=== PATIENT | male | born 1960 | race Caucasian/White ===

== ENCOUNTER 2021-03-31 18:26 | Emergency (ER) | payer MEDICAID ==
[~2021-03-31] VITALS: Ht 182.9 cm; Wt 133.6 kg
[2021-03-31 18:46] VITALS: BP 194/102
[2021-03-31] MEDS ORDERED: MELO-102 PO (19:40)
[2021-03-31] MEDS ORDERED: PSEU120T55 PO (19:40)
== END 2021-03-31 19:57 | disposition home or self-care (01) ==
LOC: ER 18:27
DX: M54.2 Cervicalgia (principal); R09.81 Nasal congestion; Z79.899 Other long term (current) drug therapy
CPT/HCPCS: 99283

== ENCOUNTER 2021-05-17 12:54 | Emergency (ER) | payer MEDICAID ==
[~2021-05-17] VITALS: Ht 182.9 cm; Wt 132.3 kg
[~2021-05-17 12:54] MED LIST: MELO-102 PO; PSEU120T55 PO
[2021-05-17 13:05] VITALS: BP 208/113
== END 2021-05-17 20:44 | disposition left against medical advice (07) ==
LOC: ER 12:55
DX: R00.2 Palpitations (principal); R06.6 Hiccough; Z53.21 Procedure and treatment not carried out due to patient leaving prior to being seen by health care provider
CPT/HCPCS: 93005

== ENCOUNTER 2021-07-31 08:42 | Day surgery (SDC) | payer MEDICAID ==
[2021-07-26 12:10] LABS: BASOPHILS # (AUTO) 0.1 X10'3 (0-0.2); BASOPHILS % (AUTO) 1.4 % (0-1); EOSINOPHILS # (AUTO) 0.3 X10'3 (0-0.9); EOSINOPHILS % (AUTO) 3.9 % (0-6); HEMOGLOBIN 14.9 g/dl (14.0-17.9); LYMPHOCYTES # (AUTO) 1.7 X10'3 (1.1-4.8); MEAN CORPUSCULAR HEMOGLOBIN 30.6 PG (27.0-31.0); MEAN CORPUSCULAR HGB CONC 35.5 g/dL (33.0-36.5); MEAN CORPUSCULAR VOLUME 86.1 FL (78-98); MEAN PLATELET VOLUME 9.4 FL (7.4-10.4); MONOCYTES # (AUTO) 0.7 X10'3 (0-0.9); MONOCYTES % (AUTO) 8.4 % (2-12); NEUTROPHILS % (AUTO) 67.3 % (42-75); PLATELET COUNT 229 X10'3 (140-440); RED BLOOD COUNT 4.88 X10'6 (4.70-6.10); RED CELL DISTRIBUTION WIDTH 13.4 % (11.5-14.5); WHITE BLOOD COUNT 8.9 X10'3 (4.5-11.0)
[2021-07-26 12:30] LABS: PARTIAL THROMBOPLASTIN TIME 29 SECONDS (22-32)
[2021-07-26 12:33] LABS: ALANINE AMINOTRANSFERASE 24 U/L (12-78); ALBUMIN 3.2 G/DL (3.4-5.0); ALBUMIN/GLOBULIN RATIO 0.8 (1.1-1.5); ALKALINE PHOSPHATASE 67 IU/L (46-116); ANION GAP 7 (8-16); ASPARTATE AMINO TRANSFERASE 18 U/L (10-37); BILIRUBIN,TOTAL 0.5 MG/DL (0.1-1.0); BLOOD UREA NITROGEN 25 MG/DL (7-18); CHLORIDE 102 MMOL/L (99-107); CREATININE 1.39 MG/DL (0.60-1.10); GLUCOSE 223 MG/DL (70-104); POTASSIUM 3.6 MMOL/L (3.5-5.1); SODIUM 139 MMOL/L (135-145); TOTAL CARBON DIOXIDE 29.8 MMOL/L (24-32); TOTAL PROTEIN 7.2 G/DL (6.4-8.2); eGFR 52 ML/MIN
[~2021-07-31] VITALS: Ht 182.9 cm; Wt 133.5 kg
[2021-07-31] VITALS (12 sets, daily range): BP systolic 140–189; BP diastolic 71–99
[2021-07-31] MEDS ORDERED: HYDR25TA5 PO (09:03)
[2021-07-31] MEDS ORDERED: ATEN50TA8 PO (09:03)
[2021-07-31] MEDS ORDERED: LISI40TA13 PO (09:03)
[2021-07-31] MEDS ORDERED: METF-1203 PO (09:03)
[2021-07-31] MEDS ORDERED: HYDR-4070 PO (09:03)
[2021-07-31] MEDS ORDERED: CARV6.253 PO (09:03)
[2021-07-31] MEDS ORDERED: AMOX1TAB15 PO (09:03)
[2021-07-31] MEDS ORDERED: insulin Lispro (HumaLOG) vial - multi-dose SQ SCH (09:05)
[2021-07-31] MEDS ORDERED: glucagon, human recombinant 1mg kit SUBCUT PRN (09:05)
[2021-07-31] MEDS ORDERED: diphenhydrAMINE 25mg capsule PO PRN (09:05)
[2021-07-31] MEDS ORDERED: LORazepam 0.5 MG tablet PO PRN (09:05)
[2021-07-31] MEDS ORDERED: DAPA10TA PO (09:05)
[2021-07-31] MEDS ORDERED: MELO-102 PO (09:05)
[2021-07-31] MEDS ORDERED: dextrose 50%-water 50ml dispensing syringe IV PRN ×2 (09:05)
[2021-07-31] MEDS ORDERED: MESSAGE TO PHARMACY PO ONE (09:05)
[2021-07-31] MEDS ORDERED: nitroGLYCERIN 0.4mg SUBLingual tab SL PRN (09:05)
[2021-07-31] MEDS ORDERED: normal saline 1,000 ML IV SCH (09:05)
[2021-07-31] MEDS ORDERED: dextrose ORAL solution 15 GM/59 ML bottle PO PRN ×2 (09:05)
[2021-07-31 10:20] LABS: HEMOGLOBIN A1C 8.7 % (4.5-6.2)
[2021-07-31] MEDS ORDERED: LIDOcaine 1% (10mg/ml)w/preservative injection 20ml MDV ONE (10:32)
[2021-07-31] MEDS ORDERED: midazolam 1 mg/ML 2ml injection ONE (10:32)
[2021-07-31] MEDS ORDERED: fentaNYL/PF 50MCG/1 ML 2ML syringe ONE (10:32)
[2021-07-31] MEDS ORDERED: iohexol 350 MG/ML 50ML vial IV ONE ×2 (10:33→11:29)
[2021-07-31] MEDS ORDERED: iohexol 350MG/ML 100ml bottle IV ONE (10:33)
[2021-07-31] MEDS ORDERED: hydrALAZINE 20mg/ml inj. IV ONE (11:12)
[2021-07-31] MEDS ORDERED: nitroGLYCERIN-Tridil 50MG/D5W 250 ML IV ONE (11:15)
[2021-07-31] MEDS ORDERED: enalaprilat dihydrate 2.5mg/2ml vial IV ONE (11:17)
[2021-07-31] MEDS ORDERED: hydrALAZINE 25 MG tablet PO ONE (11:55)
[2021-07-31] MEDS ORDERED: lisinopril 20mg tablet PO ONE (11:55)
[2021-07-31] MEDS ORDERED: hydrALAZINE 20mg/ml inj. IV PRN (11:55)
[2021-07-31] MEDS ORDERED: nitroGLYCERIN-Tridil 50MG/D5W 250 ML IV SCH (12:00)
[2021-07-31] MEDS ORDERED: proCHLORperazine 10 MG/2 ml inj IV PRN (12:10)
[2021-07-31] MEDS ORDERED: normal saline 1000ml 1,000 ML IV SCH (12:10)
[2021-07-31] MEDS ORDERED: HYDROcodone/acetaminophen 10/325mg tab PO PRN (12:10)
[2021-07-31] MEDS ORDERED: HYDROcodone/acetaminophen 5mg/325mg tablet PO PRN (12:10)
[2021-07-31] MEDS ORDERED: ondansetron/PF 4mg/2ml inj IV PRN (12:10)
[2021-07-31] MEDS ORDERED: OXAZEpam 15mg capsule PO PRN (12:10)
[2021-07-31] MEDS ORDERED: insulin glargine (Lantus) pen - multi-dose SQ SCH (21:00)
== END 2021-07-31 18:11 | disposition home or self-care (01) ==
LOC: SSTAY O 08:42
PROVIDERS: ATTEND Internal Medicine Cardiovascular Disease
DX: R94.39 Abnormal result of other cardiovascular function study (principal); I25.10 Atherosclerotic heart disease of native coronary artery without angina pectoris; I42.9 Cardiomyopathy, unspecified; F40.240 Claustrophobia; G43.809 Other migraine, not intractable, without status migrainosus; E11.9 Type 2 diabetes mellitus without complications; I10 Essential (primary) hypertension; E78.5 Hyperlipidemia, unspecified; I25.2 Old myocardial infarction; M19.90 Unspecified osteoarthritis, unspecified site; Z79.01 Long term (current) use of anticoagulants; Z79.899 Other long term (current) drug therapy; Z98.890 Other specified postprocedural states; Z87.891 Personal history of nicotine dependence
CPT/HCPCS: 36415; 71046; 80053; 83036; 83880; 84484; 85025; 85610; 85730; 93005; 93458; 99152; 99153; C1760; C1769; J0360; J1644; J1815; J2250; J3010; J3490; J7030; Q0163; Q9967; A4620; A5120; A6258

== ENCOUNTER 2021-08-14 15:26 | Outpatient (CLI) | payer MEDICAID ==
[~2021-08-14 15:26] MED LIST changes: +AMOX1TAB15 PO; +ATEN50TA8 PO; +CARV6.253 PO; +DAPA10TA PO; +HYDR-4070 PO; +HYDR25TA5 PO; +LISI40TA13 PO; +METF-1203 PO; -PSEU120T55 PO
[2021-08-14 15:56] LABS: ABG BASE EXCESS 3.6 mmol/L (-2.0-2.0); ABG HCO3 27.8 mmol/L (22.0-26.0); ABG OXYGEN SATURATION 96.2 % (94-97); ABG PCO2 (T) 40.6 mmHg (35.0-48.0); ABG PO2 (T) 83.3 mmHg (75.0-100.0); ALLEN'S TEST POSITIVE; FCOHb 0.3 % (0.0-3.9); FMetHb 0.1 % (0.0-1.5); FO2Hb 95.8 % (94-97); TOTAL HEMOGLOBIN 15.4 G/dl (14.0-18.0)
== END 2021-08-14 23:59 | disposition home or self-care (01) ==
LOC: RT 15:26
PROVIDERS: ATTEND Internal Medicine Cardiovascular Disease
DX: R06.02 Shortness of breath (principal); R06.2 Wheezing; G47.33 Obstructive sleep apnea (adult) (pediatric)
CPT/HCPCS: 36600; 82803; 85018; 94010; 94727; 94729

== ENCOUNTER 2022-07-14 13:17 | Emergency (ER) | payer MEDICAID ==
[~2022-07-14] VITALS: Ht 182.9 cm; Wt 126.5 kg
[2022-07-14 13:53] VITALS: BP 112/67
[2022-07-14 14:46] LABS: CLARITY,URINE CLEAR (Clear); COLOR,URINE YELLOW (Yellow); GLUCOSE, URINE 100 mg/dl (Neg); KETONES,URINE NEGATIVE (Neg); LEUKOCYTE ESTERASE ,URINE NEGATIVE (Neg); NITRITES, URINE NEGATIVE (Neg); OCCULT BLOOD,URINE NEGATIVE (Neg); PROTEIN,URINE 30 mg/dl (Neg); UA COLLECTION TYPE VOIDED; UROBILINOGEN,URINE 0.2 E.U/dL (0.2-1.0)
[2022-07-14 14:51] LABS: BACTERIA,URINE NONE SEEN /HPF (Neg); MUCUS STRANDS NONE SEEN /LPF (Neg); RBC,URINE NONE SEEN /HPF (0-2); SQUAMOUS EPITHELIAL CELL,UR FEW /LPF (FEW); WBC,URINE 0-4 /HPF (0-4)
[2022-07-14] MEDS ORDERED: FLO0.4C PO (15:04)
== END 2022-07-14 15:24 | disposition home or self-care (01) ==
LOC: ER 13:18
DX: R39.198 Other difficulties with micturition (principal)
CPT/HCPCS: 81001; 99284

== ENCOUNTER 2025-01-22 15:40 | Emergency (ER) | payer MEDICAID ==
[~2025-01-22] VITALS: Ht 182.9 cm; Wt 135.5 kg
[~2025-01-22 15:40] MED LIST changes: -HYDR-4070 PO; +HYDR50TA46 PO
[2025-01-22 15:45] VITALS: BP 208/100; PULSE 60; O2SAT 98
[2025-01-22] MEDS: acetaminophen 325mg tablet PO ONE (18:10)
--- NOTE | 2025-01-22 18:37 | RADIOLOGY REPORT ---
EXAM: CT CT HEAD INDICATION: Blunt injury TECHNIQUE: CT of the head without intravenous contrast. Radiation Dose : 1. Head: CT Dose: CTDI volume is 67 mGy. Dose-length product is 1268 mGy*cm The dose indicators for CT are the volume Computed Tomography (CT) Dose Index (CTDIvol) and the Dose Length Product (DLP), and are measured in units of mGy and mGy-cm, respectively. These indicators are not patient dose, but values generated from the CT scanner acquisition factors. The report includes radiation exposure data for exposures received during this examination. COMPARISON: None FINDINGS: There is no evidence of acute intracranial hemorrhage, extra-axial collection, mass effect, midline s hift, herniation or hydrocephalus. The ventricles, sulci and cisterns are commensurate in size with a mild degree of cerebral volume los s. The tavarez-white differentiation is intact. Patchy periventricular and subcortical white matter hypoattenuation is nonspecific but may be related to small vessel ischemic disease. The visualized paranasal sinuses and mastoid air cells are clear. The surrounding soft tissues and osseous structures are unremarkable. IMPRESSION: No evidence of acute intracranial abnormalities. Radiation optimization: All CT scans at this facility use at least one of these dose optimization lucio hniques: automated exposure control mA and/or kV adjustment per patient size (includes targeted exam s where dose is matched to clinical indication) or iterative reconstruction.
[2025-01-22 19:02] VITALS: RESP 16
--- NOTE | 2025-01-22 19:41 | Physician Documentation ---
History of Present Illness General Chief Complaint: Headache Stated Complaint: HEAD STRIKE Time Seen by MD: 17:47 Primary Medical Doctor: Adam History of Present Illness Initial Comments [place] fell from unk height and struck pt on crown of scalp. No loss of con yet persistent headache for 3 days with vomiting. Medication Reconciliation Allergies: Coded Allergies: No Known Allergies (Unverified , 01/22/25) Scheduled Amoxicillin/Potassium Clav (Amox Tr-K Clv 500-125 mg Tab), 1 TAB PO Q8H, (Reported) Atenolol (Atenolol), 1 TAB PO DAILY, (Reported) Carvedilol (Carvedilol), 1 TAB PO BID, (Reported) Dapagliflozin Propanediol (Farxiga), 1 TAB PO DAILY, (Reported) Hydralazine HCl (Hydralazine HCl), 1 TAB PO BID, (Reported) Hydrochlorothiazide (Hydrochlorothiazide), 1 TAB PO QAM, (Reported) Lisinopril* (Lisinopril*), 1 TAB PO BID, (Reported) Meloxicam (Meloxicam), 1 TAB PO DAILY, (Reported) Metformin HCl (Metformin HCl), 2 TAB PO BID, (Reported) Past Medical History Past Medical History: *RENAL/* Past Surgical History: other Alcohol Use: Occasionally Drug Use: none Lives with: Alone Lives In: Home Occupation: employed Physical Exam Physical Exam Vital Signs: Temperature: 98.6, Source: Temporal, Heart Rate: 60, Respiratory Rate: 16, BP: 208/100, Pulse Oximetry: 98, Weight: 135.500 Oxygen Flow Rate: 0 Progress Results/Orders Results/Orders Orders - JAVIER KO PAC Ct Head (01/22/25 ) Completed Orders - JAVIER KO PAC Ct Head (01/22/25 ) Acetaminophen 325mg Tablet (Tylenol Tabl (01/22/25 17:50) Medications Received in ER Medications (Trade) Dose Ordered Sig/Brandon Route PRN Reason Start Time Stop Time Status Last Admin Dose Admin (Tylenol tablet) 650 mg ONCE ONCE PO 01/22/25 17:50 01/22/25 17:51 DC 01/22/25 18:10 650 MG Vital Signs 01/22/25 01/22/25 15:45 19:02 Temp 98.6 Pulse 60 Resp 16 16 B/P (MAP) 208/100 Pulse Ox 98 O2 Flow Rate 0 Departure Disposition: 01 HOME / SELF CARE / HOMELESS Impression: Primary Impression: Concussion without loss of consciousness Qualified Codes: S06.0X0A - Concussion without loss of consciousness, initial encounter Condition: Improved Additional Instructions: Tonight in the emergency department he had a CT imaging which is reassuring for no obvious pathology. Likely this of your pain is that of being concussed without loss of consciousness. Please take Tylenol. Your neurological exam was reassuring. Make follow up appointment with the primary care physician for consideration a referral to Neurology if continued to have complaints of pain. Thank for visiting [facility] Referrals: NO PRIMARY CARE PROVIDER (PCP) Education Educated: Patient, Family Educated regarding: diagnosis, treatment JAVIER KO PAC Jan 22, 2025 19:41
[2025-01-22 19:50] VITALS: TEMP 98.6
== END 2025-01-22 19:51 | disposition home or self-care (01) ==
LOC: ER 15:41
DX: S06.0X0A Concussion without loss of consciousness, initial encounter (principal); X58.XXXA Exposure to other specified factors, initial encounter; Y93.89 Activity, other specified; Y92.89 Other specified places as the place of occurrence of the external cause; Y99.8 Other external cause status
CPT/HCPCS: 70450; 99284

== ENCOUNTER 2025-01-24 15:52 | Emergency (ER) | payer MEDICAID ==
[~2025-01-24] VITALS: Ht 182.9 cm; Wt 136.9 kg
[2025-01-24 16:09] VITALS: BP 170/105; PULSE 89; RESP 15; O2SAT 96
--- NOTE | 2025-01-24 17:13 | Physician Documentation ---
History of Present Illness ~ Chief Complaint: Rash Stated Complaint: POSS SHINGLES Time Seen by MD: 16:48 Primary Medical Doctor: Adam Exam Limitations: no limitations HPI This 64-year-old male presents with pain and redness to the right half of his anterior scalp worsening over the past proximally five days, patient reports there has been draining pustules that he has been putting rubbing alcohol on. Patient was seen for head pain proximally three days ago by another provider who reports that skin did not appear this erythematous. Patient additionally reports several months of pain to his right shoulder that has become more noticeable recently. Medication Reconciliation Allergies: Coded Allergies: No Known Allergies (Unverified , 01/22/25) Scheduled Acyclovir* (Zovirax*), 1 TAB PO 5XD Amoxicillin/Potassium Clav (Amox Tr-K Clv 500-125 mg Tab), 1 TAB PO Q8H, (Reported) Atenolol (Atenolol), 1 TAB PO DAILY, (Reported) Carvedilol (Carvedilol), 1 TAB PO BID, (Reported) Dapagliflozin Propanediol (Farxiga), 1 TAB PO DAILY, (Reported) Doxycycline Monohydrate (Doxycycline Monohydrate), 1 CAP PO Q12H Hydralazine HCl (Hydralazine HCl), 1 TAB PO BID, (Reported) Hydrochlorothiazide (Hydrochlorothiazide), 1 TAB PO QAM, (Reported) Lisinopril* (Lisinopril*), 1 TAB PO BID, (Reported) Meloxicam (Meloxicam), 1 TAB PO DAILY, (Reported) Metformin HCl (Metformin HCl), 2 TAB PO BID, (Reported) Past Medical History Past Medical History: *RENAL/* Past Surgical History: other Alcohol Use: Occasionally Drug Use: none Lives with: Alone Lives In: Home Occupation: employed Review of Systems ROS Rash to right side of head and upper face as stated above in the HPI, otherwise all systems are reviewed and negative. Physical Exam Vital Signs: Heart Rate: 89, Respiratory Rate: 15, BP: 170/105, Pulse Oximetry: 96, Weight: 136.900 Oxygen Flow Rate: 0 Physical Exam VITALS: Reviewed and as above. GENERAL: Alert, nontoxic appearing, no apparent distress. HEENT: Mild swelling of right eyelid otherwise no periorbital swelling, no conjunctival injection, EOMI without pain, PERRLA RESPIRATORY: No increased work of breathing, no respiratory distress, speaking in full clear sentences SKIN: Skin of the right half of anterior scalp extending into forehead and eyebrow erythematous with vesicular patches and pustular patches including some honey-crusted lesions. No significant induration and no fluctuance Progress Results/Orders Results/Orders Orders - MJ HARRIS Viral Culture, General (01/24/25 17:17) Culture Body Fluid Order (01/24/25 17:17) Completed Orders - MJ HARRIS Acyclovir 800mg Tablet (Zovirax Tablet) (01/24/25 17:20) Doxycycline 100mg Capsule (Vibramycin 10 (01/24/25 17:17) Vital Signs 01/24/25 16:09 Pulse 89 Resp 15 B/P (MAP) 170/105 Pulse Ox 96 O2 Flow Rate 0 Medical Decision Making Findings This 64-year-old male presented with right scalp and upper face redness and pain, patient reports that pain has been increasing for approximately the past 5-6 days, patient was seen three days ago by my colleague Steven Cardenas PA-C for a head strike causing pain in the same area though per my colleague's report this rash and swelling was not present when he last saw the patient. Patient patient is otherwise well-appearing with remainder of physical exam benign, there was no evidence of ocular involvement though areas small amount of swelling to the eyebrow. Based on history and physical exam suspect patient may have shingles outbreak with a secondary bacterial skin infection. Patient placed on acyclovir and doxycycline to cover both infections and instructed to follow up with primary care provider in the next few days which he verbalized understanding of and ability to do so. Patient provided careful return to care precautions which he verbalized understanding of. Differential Dx:Considerations: Include: Abscess, Atopic dermatitis, Candidiasis, Contact dermatitis, Drug reaction, Erysipelas, Gangrene, Impetigo, Pityriasis rosea, Psoriaisis, Rosacea, Scabies, Tinea, Urticaria, Varicella, Viral exanthema Departure Time of Disposition: 17:17 Disposition: 01 HOME / SELF CARE / HOMELESS Impression: Primary Impression: Shingles Qualified Codes: B02.8 - Zoster with other complications Additional Impression: Cellulitis Qualified Codes: L03.811 - Cellulitis of head [any part, except face] Condition: Improved Discharge Instructions: Cellulitis, Adult, Shingles Additional Instructions: Please take the prescribed antiviral and the prescribed antibiotics, follow up with your primary care provider in the next few days for a recheck or return to the emergency department. Keep the area clean and dry, do not reuse towels or washcloths. Please return to the emergency department for any new or worsening concerning symptoms. Referrals: NO PRIMARY CARE PROVIDER (PCP) Prescriptions Doxycycline Monohydrate (Doxycycline Monohydrate) 100 Mg Capsule 1 CAP PO Q12H for 7 Days, #14 CAP Prov: MJ HARRIS 01/24/25 Acyclovir* (Zovirax*) 800 Mg Tablet 1 TAB PO 5XD for 10 Days, #50 TAB Prov: MJ HARRIS 01/24/25 Education Educated: Patient Educated regarding: diagnosis, treatment, prognosis, need for follow up Signature Scribe Signature: No scribe Attestation: The note accurately reflects work and decisions made by me.ANTOINETTE Reich 01/25/25 03:29 MJ HARRIS Jan 24, 2025 17:12
[2025-01-24] MEDS ORDERED: DOXY100C43 PO (17:17)
[2025-01-24] MEDS ORDERED: ACYC-129 PO (17:17)
[2025-01-24] MEDS: DOXYCYCLINE 100MG CAPSULE PO STA (17:46)
== END 2025-01-24 17:52 | disposition home or self-care (01) ==
LOC: ER 15:53
DX: B02.8 Zoster with other complications (principal); L03.811 Cellulitis of head [any part, except face]; Z79.899 Other long term (current) drug therapy; Z72.89 Other problems related to lifestyle; Z60.2 Problems related to living alone
CPT/HCPCS: 99283